=== PATIENT | male | born 1995 | race Caucasian/White ===

== ENCOUNTER 2018-10-14 22:32 | Emergency (ER) | payer BC, OTHER ==
[~2018-10-14] VITALS: Ht 177.8 cm; Wt 72.6 kg
[2018-10-14 22:38] VITALS: BP 132/84
== END 2018-10-15 02:11 | disposition left against medical advice (07) ==
LOC: ER 22:36
DX: Z04.1 Encounter for examination and observation following transport accident (principal); Z53.21 Procedure and treatment not carried out due to patient leaving prior to being seen by health care provider

== ENCOUNTER 2019-07-19 18:29 | Emergency (ER) | payer OTHER ==
[~2019-07-19] VITALS: Ht 177.8 cm; Wt 74.8 kg
[2019-07-19] MEDS ORDERED: BACITRACIN TOP OINT 1 UD PKG TOP ONE (20:00)
[2019-07-19] MEDS ORDERED: TETANUS-DIPTH-ACEL PERTUSSIS 0.5ML SYR Tdap IM ONE (20:30)
[2019-07-19 20:40] VITALS: BP 126/75
== END 2019-07-19 20:58 | disposition home or self-care (01) ==
LOC: ER 18:29
DX: S61.012A Laceration without foreign body of left thumb without damage to nail, initial encounter (principal); W22.8XXA Striking against or struck by other objects, initial encounter; Y93.A2 Activity, calisthenics; Y92.090 Kitchen in other non-institutional residence as the place of occurrence of the external cause; Y99.8 Other external cause status
CPT/HCPCS: 12001; 73140; 90471; 90715